=== PATIENT | male | born 1955 | race Caucasian/White ===

== ENCOUNTER 2016-09-09 15:35 | Emergency (ER) | payer BC | END 2016-09-09 17:13 | disposition home or self-care (01) | LOC: D.ER 15:35 | DX: S81.851A Open bite, right lower leg, initial encounter (principal); W54.0XXA Bitten by dog, initial encounter; Y93.89 Activity, other specified; Y92.410 Unspecified street and highway as the place of occurrence of the external cause; E11.9 Type 2 diabetes mellitus without complications; E78.00 Pure hypercholesterolemia, unspecified ==